=== PATIENT | female | born 2000 | race Caucasian/White ===

== ENCOUNTER → 2020-09-07 | Outpatient (REF) | payer OTHER ==
[2020-09-07 17:41] LABS: C REACTIVE PROTEIN QUANTITATIV < 0.30 MG/DL (0.00-0.30); COMPLEMENT C3 133 MG/DL (90-180); COMPLEMENT C4 24 MG/DL (10-40)
[2020-09-07 17:44] LABS: TOTAL PROTEIN,RANDOM URINE 12.8 MG/DL (0.0-12.0)
[2020-09-07 18:13] LABS: APPEARANCE, URINE CLOUDY (CLEAR); BACTERIA, URINE AUTO 1+ (NEGATIVE); BILIRUBIN, URINE AUTO NEGATIVE (NEGATIVE); BLOOD, URINE BLOOD 2+ (NEGATIVE); COLOR, URINE YELLOW (YELLOW); GLUCOSE, URINE (UA) AUTO NEGATIVE (NEGATIVE); KETONE, URINE AUTO NEGATIVE (NEGATIVE); LEUKOCYTE ESTERASE, URINE AUTO 1+ (NEGATIVE); MUCUS, URINE SMALL (NEGATIVE); NITRITE, URINE AUTO NEGATIVE (NEGATIVE); PROTEIN, URINE AUTO NEGATIVE (NEGATIVE); RBC, URINE AUTO 4 /HPF (0-3); SPECIFIC GRAVITY URINE AUTO 1.017 (1.002-1.035); SQUAMOUS EPITHELIAL CELL UR AU 13 /HPF (0-6); UROBILINOGEN, URINE AUTO 0.2 mg/dL (0.0-2.0); WBC, URINE AUTO 6 /HPF (0-3)
== END ==
LOC: M SFHCRHEU 14:10
PROVIDERS: ATTEND Internal Medicine
DX: R76.8 Other specified abnormal immunological findings in serum (principal)

== ENCOUNTER → 2020-10-26 | Outpatient (CLI) | payer OTHER ==
--- NOTE | 2020-10-26 11:51 | REP ---
INDICATION: DORSALGIA. COMPARISON: None. TECHNIQUE: A multiplanar 3 T with various sequences. FINDINGS: The femoral heads are spherical in shape and symmetric in appearance. No abnormal focal chondral or subchondral signal is seen in the femoral or acetabular component of either hip. There is no hip joint effusion. There is no abnormal signal seen in the trochanteric tendono bursal region of either hip. The sacroiliac joints are within normal limits. The cortical and marrow signal is within normal limits throughout. There is no evidence of a mass or mass effect. IMPRESSION: MRI findings are within normal limits. <Electronically signed by Carson Javier > 10/26/20 [id number]
== END ==
LOC: M PLAIMG 10:43
PROVIDERS: ATTEND Internal Medicine
DX: M54.9 Dorsalgia, unspecified (principal)